=== PATIENT | male | born 1980 | race Caucasian/White ===

== ENCOUNTER 2016-09-12 14:34 | Inpatient (IN) | payer BC ==
[~2016-09-12] VITALS: Ht 167.6 cm; Wt 70.3 kg
--- NOTE | ~2016-09-12 | OR ---
PATIENT'S NAME: MICHAEL [facility] AGE: 35 Y [address] ROOM: [address] [address] LOCATION: [facility] – [place] ADMIT DATE: 09/12/2016 OR/Procedure Report DISCHARGE DATE: FAMILY PHYSICIAN: Anthony Matthews MD ATTENDING PHYSICIAN: Anthony Matthews SURGEON: Misha Delgadillo MD FRENCH TEACHER: Juan Portillo PA-C. DATE OF PROCEDURE: 09/12/2016 PREOPERATIVE DIAGNOSIS: Perforated appendicitis. POSTOPERATIVE DIAGNOSIS: Perforated appendicitis. PROCEDURE: Laparoscopic appendectomy. FINDINGS: The patient had a very large dilated perforated retrocecal appendix. ESTIMATED BLOOD LOSS: Less than 50 mL. COMPLICATIONS: None. INDICATIONS: The patient is a 35-year-old male, who presented with abdominal pain. He was found to have a CT evidence of perforated appendicitis. We discussed appendectomy with the patient versus antibiotics. Ultimately, we elected to proceed with surgery. The risks, benefits, and alternatives have been discussed in detail. DESCRIPTION OF PROCEDURE: The patient was taken to the operating room. He was supine. He was given IV sedation and subsequently intubated. His abdomen was prepped with ChloraPrep and sterilely draped. Local anesthetic was infiltrated just inferior to the umbilicus. A transverse incision was created. The abdomen was elevated. Veress needle was inserted. Pneumoperitoneum was induced. Following this, a 5-mm trocar was inserted followed by insertion of the camera. There was no injury from initial trocar placement. Two more trocars were then positioned, a 5-mm suprapubic and a 12- mm left lower quadrant port. Skin overlying the peritoneum was first anesthetized prior to making these incisions. Both of these trocars were inserted under direct visualization. There was an inflammatory mass on the right abdomen with inflamed omentum. We were able to mobilize this medially and expose the base of the appendix, which was dilated, but was not necrotic. The appendix was intimately adherent to the ascending colon. We were able to slowly mobilize this and elevate this in the mid body. There was abscess and a large perforation present, small amount of feculent material. This was able to be relatively contained. We dissected towards the tip, elevated the PATIENT'S NAME: MICHAEL [facility]ORD [facility] AGE: 35 Y [address] ROOM: [address] [address] LOCATION: [facility] [place] ADMIT DATE: 09/12/2016 OR/Procedure Report DISCHARGE DATE: FAMILY PHYSICIAN: Anthony Matthews MD ATTENDING PHYSICIAN: Anthony Matthews appendix. Staple load was placed across the mesoappendix and across the base of the appendix. Once this was completed, the appendix was placed in an EndoCatch bag and brought out through the left lower quadrant port site. The operative field was inspected. There were a large number of raw surfaces present due to the amount of inflammatory process that was present. We felt the area was hemostatic. We copiously irrigated the abdomen, removed the fluid, released the pneumoperitoneum, and trocars were removed. The fascia of the 12-mm port site was approximated with 0 Vicryl suture and skin closure of all 3 port sites with 4-0 Monocryl suture. Steri-Strips and sterile dressings were placed. The patient was extubated and sent to recovery in good condition. MD KEM MCKEON/modl /[id number] d: 09/13/16 0354 t: 09/19/16 1947, OPERATIVE SUMMARY
--- NOTE | ~2016-09-12 | HP ---
PATIENT'S NAME: ADAMS GIFFORD [facility] AGE: 35 Y [address] ROOM: [place] [address] LOCATION: [facility] [place] ADMIT DATE: 09/12/2016 History & Physical DISCHARGE DATE: FAMILY PHYSICIAN: Anthony Matthews MD ATTENDING PHYSICIAN: Anthony Matthews DATE OF SERVICE: CHIEF COMPLAINT: Abdominal pain. HISTORY OF PRESENT ILLNESS: The patient is a 35-year-old male who said more than a week ago he had not felt well, was overheated, dehydrated, and was in general just ill. This began around the or 29 of August. He said he did not feel great for approximately 1 week and then began improving; however, on the , began feeling ill again. At that time, he was having some mild abdominal discomfort, he had not been having bowel movements, but had a normal white blood cell count, normal CRP, and was actually treated for constipation. He said this really did not improve his symptomatology, but he did not get a lot worse until Friday. On Friday, he said he developed worsening pain, mainly in the right lower quadrant. He then began having fevers up to 102 with severe pain. Since his episode of severe pain, he actually has had some improvement; however, with ongoing pain, he still had normal white blood cell count, but had a CT scan, CT revealed evidence of a perforated appendicitis. Because of that, I was consulted. The patient said he has never had pain like this in the past. He has had some nausea with this. Pain is worse when he moves. He had no hematuria or dysuria. CURRENT MEDICATIONS: None. ALLERGIES: MINOCYCLINE. PAST SURGICAL HISTORY: He had an operation on one of his extremities, but no abdominal operations. FAMILY HISTORY: A great grandmother with a cancer. No heart disease or lung problems. REVIEW OF SYSTEMS: He denies any headache or vision changes. No chest pain or shortness of breath. No history of coronary artery disease. No melena. No hematochezia. No hematuria or dysuria. No history of diabetes. No hyper or hypothyroidism. PATIENT'S NAME: ADAMS GIFFORD [facility] AGE: 35 Y [address] ROOM: [place] [address] LOCATION: [facility] [place] ADMIT DATE: 09/12/2016 History & Physical DISCHARGE DATE: FAMILY PHYSICIAN: Anthony Matthews MD ATTENDING PHYSICIAN: Anthony Matthews PHYSICAL EXAMINATION: GENERAL: Pleasant 35-year-old male who appears moderately uncomfortable. HEENT: Head is normocephalic, atraumatic. His eyes are anicteric. NECK: Without lymphadenopathy. HEART: Regular rate and rhythm. LUNGS: Clear to auscultation bilaterally. ABDOMEN: Tender to palpation in the right lower quadrant, but not as extensive as I thought with the CT findings, there is no rebound present, and did demonstrate slight voluntary guarding. EXTREMITIES: Warm. No edema. NEUROLOGIC: Gross motor is intact. ASSESSMENT: Perforated appendicitis. PLAN: Discussed the findings with Adams. With the length of time this has been present and the significant inflammation in the retrocecal appendix, we discussed I attempt at IV antibiotics, I am concerned that if we try this alone, he likely would develop abscess requiring drainage, which would be okay as well, but could fail conservative management. We discussed surgery and the difficulty with the amount of inflammation, risks which include bleeding, infection, abscess formation, staple line leak, and need for further surgical intervention. We discussed both need for open and laparoscopic surgery as well as even significant complications postoperatively requiring bowel resection or even ostomy. He understands the risks of surgery and would like to proceed. We will provide IV antibiotics and proceed to the operating room. MD KEM MCKEON/arianna /[id number] D: [id number] T: [id number] HISTORY & PHYSICAL
[2016-09-13 06:39] LABS: BASOPHIL % 0.1 %; HEMATOCRIT 40.9 % (37.0-53.0); HEMOGLOBIN 14.1 g/dL (12.0-17.0); IMMATURE GRANULOCYTE % 0.4 %; LYMPHOCYTE # 0.9 K/uL (0.8-4.0); LYMPHOCYTE % 9.3 %; MCH 31.3 pg (27.0-34.0); MCHC 34.5 gm/dL (32.0-36.5); MCV 90.9 fl (83.0-98.0); MONOCYTE # 0.9 K/uL (0.0-1.0); MONOCYTE % 10.3 %; MPV 10.9 fl (9.4-12.4); NEUTROPHIL # (ANC) 7.3 K/uL (1.4-9.0); NEUTROPHIL % 79.9 %; NRBC % 0 /100WBC (0-0.00); PLATELET COUNT 191 K/uL (150-450); RDW-CV 11.3 % (11.9-14.6); WBC 9.2 K/uL (4.0-11.0)
[2016-09-13 06:56] LABS: ALBUMIN 2.8 gm/dL (3.5-5.0); ALK PHOS 83 IU/L (33-138); ALT 52 IU/L (12-78); ANION GAP 10.5 (10.0-19.0); AST 30 IU/L (10-40); BLOOD UREA NITROGEN 11 mg/dL (6-24); CALCIUM 8.2 mg/dL (8.5-10.5); CHLORIDE 102 mMol/L (96-110); CO2 29 mMol/L (22-32); POTASSIUM 4.5 mMol/L (3.7-5.1); SODIUM 137 mMol/L (135-145); TOTAL BILIRUBIN 0.8 mg/dL (0.0-1.5); TOTAL PROTEIN 6.7 g/dL (6.0-8.4)
[2016-09-14] MEDS ORDERED: NORCO 5-325 TA1 EACH PO (11:39)
[2016-09-14] MEDS ORDERED: AUGMENTIN 875-1 EACH PO (11:41)
[2016-09-14] MEDS ORDERED: ADVIL200 MG PO (11:43)
== END 2016-09-14 12:25 | disposition disaster alternative care site (69) | DRG 340 ==
LOC: GRAD 14:34 → GMSU 16:48
PROVIDERS: ADMIT Family Medicine
DX: K35.2 Acute appendicitis with generalized peritonitis (principal)
CPT/HCPCS: J1100; J2001; J2405; J2543; J3010; J7050; J7120; Q9967